=== PATIENT | female | born 1955 | race Caucasian/White ===

== ENCOUNTER 2019-04-07 05:41 | Outpatient (CLI) | payer MEDICARE, BC ==
[~2019-04-07] VITALS: Ht 167.7 cm; Wt 72.6 kg
[2019-04-07] MEDS ORDERED: CHOL400T PO (14:35)
[2019-04-07] MEDS ORDERED: MULT-1067 PO (14:35)
[2019-04-07] MEDS ORDERED: ACET-2469 PO (14:35)
[2019-04-07] MEDS ORDERED: CALC-901 PO (14:35)
[2019-04-07] MEDS ORDERED: VIT1CAPS44 PO (14:35)
[2019-04-07] MEDS ORDERED: NFBIOT1000 PO (14:36)
[2019-04-07] MEDS ORDERED: LEVO100T7 PO (14:36)
[2019-04-07] MEDS ORDERED: VITA400T9 PO (14:36)
[2019-04-07] MEDS ORDERED: OMEP20TA7 PO (14:36)
== END 2019-04-07 14:39 | disposition home or self-care (01) ==
LOC: PREOP 05:41
PROVIDERS: ATTEND Specialist
DX: Z01.818 Encounter for other preprocedural examination (principal)

== ENCOUNTER 2019-04-09 09:18 | Day surgery (SDC) | payer MEDICARE, BC ==
[~2019-04-09] VITALS: Ht 142.2 cm; Wt 72.6 kg
[~2019-04-09 09:18] MED LIST: ACET-2469 PO; CALC-901 PO; CHOL400T PO; LEVO100T7 PO; MULT-1067 PO; NFBIOT1000 PO; OMEP20TA7 PO; VIT1CAPS44 PO; VITA400T9 PO
[2019-04-09] MEDS ORDERED: MOXIFLOXACIN OPHTH SOLN 5 MG/ML 0.3 ML SYRINGE OP ONE (09:30)
[2019-04-09] MEDS ORDERED: TIMOLOL MALEATE 0.5% 5 ML (TIMOPTIC) BTL OU PRN (09:30)
[2019-04-09] MEDS ORDERED: POVIDONE (BETADINE) OPHTH SOLN 5% 30 ML OP ONE (09:30)
[2019-04-09] MEDS ORDERED: LIDOCAINE PF 1% 2 ML AMP IR PRN (09:30)
[2019-04-09] MEDS: TETRACAINE 0.5% OPHTH SOLN 4 ML BTL (SINGLE DOSE ONLY) OU PRN ×4 (09:31→09:53)
[2019-04-09 09:40] VITALS: BP 145/75
[2019-04-09] MEDS: PHENYLEPHRINE 10% OPHTH (NEO-SYN) 5 ML BTL OU SCH ×3 (09:42→09:53)
[2019-04-09] MEDS: CYCLOPENTOLATE 1% (CYCLOGYL) 2 ML DROPS OP SCH ×3 (09:42→09:53)
[2019-04-09] MEDS ORDERED: MIDAZOLAM 2 MG/2 ML (VERSED) VIAL ONE (10:15)
--- NOTE | 2019-04-09 10:17 | Ophthalmologist Pre-Op Note ---
Pre-Operative Progress Note H&P Reviewed The H&P was reviewed, patient examined and no changes noted. Date H&P Reviewed: Apr 09, 2019 Time H&P Reviewed: 10:17 Pre-Op Dx Cataract, Left Eye JAIMIE CALVERT MD Apr 09, 2019 10:17
--- NOTE | 2019-04-09 10:40 | Ophthalmology Operative Report ---
Cataract removal/placement IOL PREOPERATIVE DIAGNOSIS: Cataract Left Eye POSTOPERATIVE DIAGNOSIS: Cataract Left Eye PROCEDURE: Cataract removal and placement of posterior chamber implant, left eye SURGEON: Ghassan Calvert ANESTHESIA: Topical with sedation COMPLICATIONS: None ESTIMATED BLOOD LOSS: Minimal DESCRIPTION OF PROCEDURE: After proper informed consent was obtained, the patient, a 63 female, was taken to the Operating Room and the left eye was anesthetized with tetracaine. The left eye was then prepped and draped in the usual manner. A wire lid speculum was placed. A paracentesis was made at the left hand position. Preservative free lidocaine was injected into the anterior chamber followed by viscoelastic. A clear corneal incision was made in the temporal position. A capsulorrhexis was preformed and the central nuclear and cortical material were removed. The posterior capsule was polished and an Slava 21.0 AU00T0 was placed into the capsular bag. The residual viscoelastic was aspirated and balanced saline solution was injected into the anterior chamber. Moxifloxacin was injected into the anterior chamber. The wound was checked and found to be water tight. The patient tolerated the procedure well without complications. GHASSAN CALVERT MD Apr 09, 2019 10:40
[2019-04-09 10:50] VITALS: BP 141/74
[2019-04-09] MEDS ORDERED: acetaZOLAMIDE ER 500 MG CAP (DIAMOX SEQUELS) PO ONE (11:30)
== END 2019-04-09 10:50 | disposition home or self-care (01) ==
LOC: SDC 09:18
PROVIDERS: ATTEND Specialist
DX: H25.12 Age-related nuclear cataract, left eye (principal); K21.9 Gastro-esophageal reflux disease without esophagitis; Z90.710 Acquired absence of both cervix and uterus; Z90.89 Acquired absence of other organs; Z83.518 Family history of other specified eye disorder; Z83.3 Family history of diabetes mellitus

== ENCOUNTER 2019-04-28 05:35 | Outpatient (CLI) | payer MEDICARE, BC ==
[~2019-04-28] VITALS: Ht 167 cm; Wt 72.6 kg
== END 2019-04-28 15:00 | disposition home or self-care (01) ==
LOC: PREOP 05:35
PROVIDERS: ATTEND Specialist
DX: Z01.818 Encounter for other preprocedural examination (principal)

== ENCOUNTER 2019-04-30 07:26 | Day surgery (SDC) | payer MEDICARE, BC ==
[~2019-04-30] VITALS: Ht 167.6 cm; Wt 72.6 kg
[2019-04-30 07:40] VITALS: BP 135/79
[2019-04-30] MEDS ORDERED: POVIDONE (BETADINE) OPHTH SOLN 5% 30 ML OP ONE (07:45)
[2019-04-30] MEDS ORDERED: TIMOLOL MALEATE 0.5% 5 ML (TIMOPTIC) BTL OU PRN (07:45)
[2019-04-30] MEDS ORDERED: MOXIFLOXACIN OPHTH SOLN 5 MG/ML 0.3 ML SYRINGE OP ONE (07:45)
[2019-04-30] MEDS ORDERED: LIDOCAINE PF 1% 2 ML AMP IR PRN (07:45)
[2019-04-30] MEDS: TETRACAINE 0.5% OPHTH SOLN 4 ML BTL (SINGLE DOSE ONLY) OU PRN ×4 (07:53→08:23)
[2019-04-30] MEDS: PHENYLEPHRINE 10% OPHTH (NEO-SYN) 5 ML BTL OU SCH ×3 (08:03→08:24)
[2019-04-30] MEDS: CYCLOPENTOLATE 1% (CYCLOGYL) 2 ML DROPS OP SCH ×3 (08:03→08:24)
--- NOTE | 2019-04-30 08:39 | Ophthalmologist Pre-Op Note ---
Pre-Operative Progress Note H&P Reviewed The H&P was reviewed, patient examined and no changes noted. Date H&P Reviewed: Apr 30, 2019 Time H&P Reviewed: 08:39 Pre-Op Dx Cataract, Right Eye JAIMIE CALVERT MD Apr 30, 2019 08:39
[2019-04-30] MEDS ORDERED: MIDAZOLAM 2 MG/2 ML (VERSED) VIAL ONE (08:42)
[2019-04-30] MEDS ORDERED: acetaZOLAMIDE ER 500 MG CAP (DIAMOX SEQUELS) PO ONE (09:00)
--- NOTE | 2019-04-30 09:00 | Ophthalmology Operative Report ---
Cataract removal/placement IOL PREOPERATIVE DIAGNOSIS: Cataract Right Eye POSTOPERATIVE DIAGNOSIS: Cataract Right Eye PROCEDURE: Cataract removal and placement of posterior chamber implant, right eye SURGEON: Ghassan Calvert ANESTHESIA: Topical with sedation COMPLICATIONS: None ESTIMATED BLOOD LOSS: Minimal DESCRIPTION OF PROCEDURE: After proper informed consent was obtained, the patient, a 63 female, was taken to the Operating Room and the right eye was anesthetized with tetracaine. The right eye was then prepped and draped in the usual manner. A wire lid speculum was placed. A paracentesis was made at the left hand position. Preservative free lidocaine was injected into the anterior chamber followed by viscoelastic. A clear corneal incision was made in the temporal position. A capsulorrhexis was preformed and the central nuclear and cortical material were removed. The posterior capsule was polished and Slava 21.0 AU00T0 IOL was placed into the capsular bag. The residual viscoelastic was aspirated and balanced saline solution was injected into the anterior chamber. Moxifloxacin was injected into the anterior chamber. The wound was checked and found to be water tight. The patient tolerated the procedure well without complications. GHASSAN CALVERT MD Apr 30, 2019 09:00
[2019-04-30 09:10] VITALS: BP 119/67
--- NOTE | 2019-04-30 10:11 | Anesthesia-General Post-Op ---
MAC Patient Condition Mental Status/LOC: Same as Preop Cardiovascular: Satisfactory Nausea/Vomiting: Absent Respiratory: Satisfactory Pain: Controlled Complications: Absent Post Op Complications Complications None Follow Up Care/Instructions Patient Instructions None needed. Anesthesiology Discharge Order Discharge Order Patient is doing well, no complaints, stable vital signs, no apparent adverse anesthesia problems. No complications reported per nursing. BILLY GONZALES CRNA Apr 30, 2019 10:11
== END 2019-04-30 09:10 | disposition home or self-care (01) ==
LOC: SDC 07:26
PROVIDERS: ATTEND Specialist
DX: H25.11 Age-related nuclear cataract, right eye (principal); K21.9 Gastro-esophageal reflux disease without esophagitis; Z83.3 Family history of diabetes mellitus; Z83.518 Family history of other specified eye disorder; Z79.899 Other long term (current) drug therapy; Z90.710 Acquired absence of both cervix and uterus